=== PATIENT | female | born 1985 | race Hispanic/Latino ===

== ENCOUNTER 2018-09-29 07:00 | Outpatient (CLI) | payer OTHER ==
--- NOTE | 2018-09-29 09:53 | ULT ---
OB ULTRASOUND: HISTORY: Evaluate size, dates, and anatomy. COMPARISON: None. TECHNIQUE: Sagittal and transverse imaging of a gravid uterus is performed. FINDINGS: Cervix is identified, measuring 6.1 cm. Anterior placenta. No evidence of previa. Biometry: BPD 4.31 cm, 19 weeks 0 days Head circumference 15.77 cm, 18 weeks 5 days Abdominal circumference 13.37 cm, 18 weeks 6 days Femur length 2.82 cm, 18 weeks 4 days Average by sonography is 18 weeks 4 days. Estimated weight is 156 gm. presentation is transverse head to the maternal left. heart tones with a rate of 14 b.p.m. Amniotic fluid index is 12.2 cm. Survey: The following structures are adequately demonstrated: cerebellum, cisterna, magna, lateral ventricle s, bladder, 3-vessel cord, cord insertion, extremities, sagittal spine. Limited evaluation of the no se and lips, stomach, kidneys, 4-chamber heart. IMPRESSION: 1. Single intrauterine gestation with heart tones. Average age by sonography is 18 weeks 4 da ys. 2. survey as above. Followup imaging can be performed at 20 weeks to complete the surve y. POS: OFF
== END 2018-09-29 07:01 | disposition home or self-care (01) ==
LOC: ULT 07:00
PROVIDERS: ATTEND Family Medicine
DX: Z34.82 Encounter for supervision of other normal pregnancy, second trimester (principal); Z3A.20 20 weeks gestation of pregnancy
CPT/HCPCS: 76805

== ENCOUNTER 2019-02-14 09:51 | Inpatient (IN) | payer MEDICAID, SELFPAY ==
[2019-02-14] MEDS ORDERED: CEFAZOLIN 2 GM in Premix Bag 1 BAG IVPB SCH (10:19)
[2019-02-14] MEDS ORDERED: hydrALAZINE 20 MG/ML VIAL SLOW IVP PRN ×2 (10:19→11:46)
[2019-02-14] MEDS ORDERED: Bicitra 30 ML UDCUP PO SCH (10:19)
[2019-02-14] MEDS ORDERED: Ondansetron PF 4 MG/2 ML Vial IVP PRN ×3 (10:19→13:31)
[2019-02-14] MEDS ORDERED: Promethazine HCl 25 MG/ML VIAL IM PRN ×2 (10:19→13:31)
[2019-02-14 10:30] VITALS: BMI 27.7
[2019-02-14 11:04] LABS: Hemoglobin 10.9 g/dL (12.0-16.0); Mean Corpuscular HGB CONC 33.3 g/dL (32.0-36.0); Mean Corpuscular Hemoglobin 24.8 pg (27.0-31.0); Mean Corpuscular Volume 74.4 fL (78.0-98.0); Mean Platelet Volume 8.3 fL (7.4-10.4); Platelet Count 352 thou/uL (130-400); RBC Distribution Width 15.7 % (11.5-14.5); Red Blood Cell (RBC) Count 4.42 mill/uL (4.20-5.40); White Blood Cell (WBC) Count 8.5 thou/uL (4.8-10.8)
[2019-02-14] MEDS ORDERED: MORPHINE 5 MG/10 ML PF VIAL ONE (11:28)
[2019-02-14] MEDS ORDERED: ePHEDrine/0.9% NaCl/PF SYRINGE 50 mg/10 ml ONE (11:29)
[2019-02-14] MEDS ORDERED: Oxytocin 10 UNITS/ML VIAL ONE (11:29)
[2019-02-14 11:35] LABS: Syphilis Antibody Nonreactive (Nonreactive); Syphilis Antibody Index 0.05 S/CO (<1.00 Non-Reactive)
[2019-02-14 11:36] LABS: HBSAg Index 0.17 S/CO (0-0.99); Hep B Surf Ag Non-Reactive S/CO (NonReactive)
[2019-02-14] MEDS ORDERED: HYDROcodone/Acetaminophen 5/325 mg Tablet PO PRN ×2 (11:46)
[2019-02-14] MEDS ORDERED: Meperidine HCl/PF 25 MG/ML VIAL IM PRN (11:46)
[2019-02-14] MEDS ORDERED: Adacel (T-DAP) 0.5 ML SYRINGE IM ONE (11:46)
[2019-02-14] MEDS ORDERED: diphenhydrAMINE 25 MG CAP PO PRN (11:46)
[2019-02-14] MEDS ORDERED: Lanolin Ointment 7 GM TUBE TOP PRN (11:46)
[2019-02-14] MEDS ORDERED: Simethicone Chewable 80 MG TAB PO PRN (11:46)
[2019-02-14] MEDS ORDERED: Bisacodyl 10 MG SUPP PR PRN (11:46)
[2019-02-14] MEDS ORDERED: NS / Oxytocin 40 units/1000ml 1,000 ML IV SCH (12:00)
[2019-02-14] MEDS: Lactated Ringer's 1,000 ML IV SCH ×2 (12:02→23:57)
[2019-02-14] MEDS ORDERED: Ondansetron PF 4 MG/2 ML Vial ONE (12:45)
[2019-02-14] MEDS ORDERED: Naloxone HCl 0.4 mg/ml Vial IV PRN (13:31)
[2019-02-14] MEDS ORDERED: diphenhydrAMINE 50 MG/ML VIAL IVP PRN (13:31)
[2019-02-14] MEDS ORDERED: Naloxone HCl 0.4 mg/ml Vial IVP PRN ×2 (13:31)
[2019-02-14] MEDS ORDERED: Ketorolac Tromethamine 30 MG/ML VIAL IVP PRN (13:31)
[2019-02-14] MEDS ORDERED: Promethazine HCl 25 MG SUPP PR PRN (13:31)
[2019-02-14] MEDS ORDERED: Communication Order-Pharmacy FS SCH (13:45)
--- NOTE | 2019-02-14 17:13 | OP ---
DATE OF PROCEDURE: 02/14/2019 PRIMARY SURGEON: Dr. David Juarez. TIE IN MACHINE OPERATOR SURGEON: Dr. Yolande Reyez. PROCEDURE PERFORMED: Repeat low-transverse section. PREOPERATIVE DIAGNOSES: 1. Term intrauterine . 2. Previous . POSTOPERATIVE DIAGNOSES: 1. Term intrauterine . 2. Previous . ANESTHESIA: Spinal. INDICATIONS: The patient is a 34-year-old, G2, P1 female at 39.4 weeks' gestation, who presents for repeat scheduled . PROCEDURE IN DETAIL: After the risks, benefits, and alternatives were explained to the patient, she got informed consent. Preoperative antibiotics included cefazolin 2 g IV. The patient was taken to the operating room. Spinal anesthesia was initiated. She was placed in the supine position with a left tilt, prepped and draped in the usual sterile fashion. A Pfannenstiel incision was made with a scalpel and carried down to the level of the fascia, which was sharply nicked. The fascial cut was extended bilaterally with Lombardi scissors. The inferior and superior edges of the cut vaginal edges were elevated with Michael clamps and the underlying rectus muscles were sharply and bluntly dissected free. The recti were divided digitally and retracted manually. The peritoneum was entered bluntly and retracted manually. The bladder blade was placed. A low-transverse score was made with a scalpel and the uterus was entered in the midline with a scalpel. Clear fluid was seen. Hysterotomy was extended manually. Infant was noted to be vertex, was easily delivered by fundal pressure. Mouth and nares were bulb suctioned. Cord clamped and cut and grossly normal female was handed to waiting nurse. Cord blood was obtained. Placenta was manually extracted, found to be intact, 3-vessel cord, discarded. Uterus was externalized and the endometrium was curetted with a dry lap. The bladder blade was replaced and the uterus was closed with a running locking 0 Vicryl suture followed by a running nonlocking 0 Vicryl imbricating suture. Following this, hemostasis was noted. The abdomen was irrigated with saline and suctioned free of clots. Four sheets of Seprafilm were placed over the closed hysterotomy incision. The uterus was internalized and the hysterotomy was again noted to be hemostatic. The peritoneum was closed using a running nonlocking 3-0 Vicryl suture. The fascia was closed with a running nonlocking 0 PDS suture. The subcutaneous tissue was irrigated and there were no free bleeders. The subcutaneous tissue was then closed using 3 interrupted 3-0 Vicryl sutures. The skin was then approximated with sahra and a pressure dressing was placed. All counts were correct. The patient tolerated the procedure well and was taken to the recovery room in stable condition. ESTIMATED BLOOD LOSS: 600 mL. QUANTITATIVE BLOOD LOSS: 545 mL. COMPLICATIONS: None. SPECIMENS: Cord blood sent to Lab for blood type. FINDINGS: 1. Grossly normal female infant with Apgars of 8 and 8. 2. Grossly normal placenta with 3-vessel cord, discarded. DRAINS: Franco to gravity draining clear urine. Job ID: [id number] [id number]
[2019-02-14] MEDS: Ferrous Sulfate 325 MG TAB PO SCH (18:20)
[2019-02-14] MEDS: Ketorolac Tromethamine 30 MG/ML VIAL IVP SCH (19:45)
[2019-02-14] MEDS: Docusate Calcium (SURFAK) 240 MG CAP PO SCH (21:00)
[2019-02-15] MEDS: Ketorolac Tromethamine 30 MG/ML VIAL IVP SCH ×2 (01:09→07:37)
[2019-02-15] MEDS: Lactated Ringer's 1,000 ML IV SCH ×3 (04:53→18:55)
[2019-02-15] MEDS: Ferrous Sulfate 325 MG TAB PO SCH ×2 (09:01→18:55)
[2019-02-15] MEDS: Prenatal Vitamin 1 TAB PO SCH (09:01)
[2019-02-15] MEDS: Docusate Calcium (SURFAK) 240 MG CAP PO SCH ×2 (09:01→19:54)
[2019-02-15] MEDS ORDERED: FLU VACC QS2019-20(6MOS UP)/PF 60 MCG/0.5 ML SYRINGE IM ONE (12:30)
[2019-02-15] MEDS: Ibuprofen 800 MG TAB PO SCH ×2 (13:58→21:10)
[2019-02-15] MEDS ORDERED: HYDROcodone/Acetaminophen 5/325 mg Tablet PO PRN (19:38)
[2019-02-15] MEDS: HYDROcodone/Acetaminophen 5/325 mg Tablet PO PRN (19:53)
[2019-02-16] MEDS: Ibuprofen 800 MG TAB PO SCH ×2 (05:05→13:41)
[2019-02-16] MEDS: HYDROcodone/Acetaminophen 5/325 mg Tablet PO PRN (08:47)
[2019-02-16] MEDS: Prenatal Vitamin 1 TAB PO SCH (08:47)
[2019-02-16] MEDS: Docusate Calcium (SURFAK) 240 MG CAP PO SCH (08:47)
[2019-02-16 11:56] VITALS: TEMP 98.3
[2019-02-16 12:10] VITALS: BP 111/56
[2019-02-16] MEDS: Ferrous Sulfate 325 MG TAB PO SCH (12:18)
[2019-02-16] MEDS: Lactated Ringer's 1,000 ML IV SCH (12:45)
== END 2019-02-16 16:15 | disposition home or self-care (01) | DRG 788 ==
LOC: L&D 09:51 → 3SW 16:27
PROVIDERS: ADMIT Family Medicine; ATTEND Family Medicine
PROC: 10D00Z1 Extraction of Products of Conception, Low, Open Approach (ICD-10-PCS; principal; 2019-02-14)
PROC: 3E02340 Introduction of Influenza Vaccine into Muscle, Percutaneous Approach (ICD-10-PCS; 2019-02-15)
DX: O34.211 Maternal care for low transverse scar from previous cesarean delivery (principal); Z3A.39 39 weeks gestation of pregnancy; Z37.0 Single live birth; Z23 Encounter for immunization
CPT/HCPCS: 36415; 85027; 86780; 86850; 86900; 86901; 87340; 90471; 90686; 90715; G0008; J0690; J1885; J2274; J2310; J2405; J2590